=== PATIENT | female | born 1935 | race Caucasian/White ===

== ENCOUNTER 2017-11-28 09:46 | Emergency (ER) | payer MEDICARE, OTHER ==
[~2017-11-28] VITALS: Ht 162.6 cm; Wt 52.2 kg
[~2017-11-28 09:46] MED LIST: ACYCLOVIR800 MG PEG; TRANSDERM-SCOP1 EACH TD
[2017-11-28] MEDS ORDERED: ASPIRIN 81 MG CHEW TAB PO ONE (10:30)
[2017-11-28 12:35] LABS: BASOPHILS # (AUTO) 0.1 (0.0-0.1); HEMATOCRIT 39.8 % (34.2-44.1); HEMOGLOBIN 13.7 g/dL (12.0-16.0); LYMPHOCYTES # (AUTO) 0.3 (1.0-3.2); LYMPHOCYTES % 4.4 % (18.0-39.1); MEAN CORPUSCULAR HEMOGLOBIN 31.1 pg (28-32); MEAN CORPUSCULAR HGB CONC 34.4 g/dL (31-35); MEAN CORPUSCULAR VOLUME 90.5 fL (81-99); MONOCYTES # (AUTO) 0.2 (0.2-0.8); MONOCYTES % 2.3 % (4.4-11.3); NEUTROPHILS # (AUTO) 6.3 (2.1-6.9); NEUTROPHILS % 90.7 % (38.7-80.0); PLATELET COUNT 173 x10e3/uL (140-360); RED CELL DISTRIBUTION WIDTH 12.2 % (11.7-14.4)
[2017-11-28 12:36] LABS: COLOR,URINE YELLOW (YELLOW)
[2017-11-28 12:37] LABS: CLARITY,URINE CLEAR (CLEAR); LEUKOCYTE ESTERASE ,URINE NEGATIVE (NEGATIVE); NITRITE,URINE NEGATIVE (NEGATIVE); PROTEIN,URINE DIPSTICK NEGATIVE (NEGATIVE)
[2017-11-28 12:38] LABS: BILIRUBIN,URINE NEGATIVE (NEGATIVE); KETONES,URINE NEGATIVE (NEGATIVE); URINE UROBILINOGEN 1 mg/dL (0.2 - 1)
[2017-11-28 12:47] LABS: BACTERIA,URINE MODERATE /HPF; MUCUS,URINE MODERATE (RARE); WBC,URINE (MAN) 0-5 /HPF (0-5)
[2017-11-28 12:48] LABS: INR 0.93; PROTHROMBIN TIME 13.3 seconds (11.9-14.5)
[2017-11-28 12:49] LABS: PARTIAL THROMBOPLASTIN TIME 20.9 seconds (23.8-35.5)
[2017-11-28 12:52] LABS: ALANINE AMINOTRANSFERASE 22 IU/L (0-55); ALBUMIN 3.5 g/dL (3.5-5.0); ALKALINE PHOSPHATASE 65 IU/L (40-150); ANION GAP 16.6 mmol/L (8-16); BLOOD UREA NITROGEN 27 mg/dL (7-26); BUN/CREATININE RATIO 39 (6-25); CALCIUM 9.7 mg/dL (8.4-10.2); CARBON DIOXIDE 26 mmol/L (22-29); CHLORIDE 97 mmol/L (98-107); CREATINE KINASE 27 IU/L (29-168); EST GLOMERULAR FILTRATION RATE > 60 ML/MIN (60-); GLUCOSE 145 mg/dL (74-118); LIPASE 57 U/L (8-78); POTASSIUM 4.6 mmol/L (3.5-5.1); SODIUM 135 mmol/L (136-145)
[2017-11-28 14:14] VITALS: BP 135/61
--- OUTSIDE RECORDS SUMMARY | 2017-11-28 14:43 | XMS REPORT | Continuity of Care Document ---
Author Author [facility] Interface Address Unknown Phone Unavailable Problems Problem Status Onset Date Classification Date Reported Comments Source FNA LEFT NECK MASS Active 06/21/2017 [facility] Medications Medication Details Route Status Patient Instructions Ordering Provider Order Date Source Allergies, Adverse Reactions, Alerts Substance Category Reaction Severity Reaction type Status Date Reported Comments Source Immunizations Immunization Date Given Site Status Last Updated Comments Source Results Order Name Results Value Reference Range Date Interpretation Comments Source Biopsy with ultrasound guidance VR Biopsy with ultrasound guidance VR FNA LEFT NECK MASS: HISTORY: Left neck swelling with hoarseness. The patient states she has a history of neck mass for approximately 10 years which has come and gone, but now has increased again. She also has a smaller right neck mass which is relatively new. Per the patient, surgical biopsy of the left neck mass has been done in the past and FNA of the right neck mass has also been done. There are no current imaging studies available. Her recent studies have been done at another facility which is no longer operational. PROCEDURE: The procedure was done using ultrasound guidance, sterile technique and local anesthetic. Preliminary ultrasound shows an ill-defined multilobular heterogeneous mass in the deep to the sternocleidomastoid muscle. 5 passes were then done into the mass with 25-gauge hypodermic needles and the material obtained placed on slides and spray fixed, with needle washings placed into CytoLyt and RPMI. The patient tolerated the procedure well without immediate complications, and was discharged from [facility] in stable condition. [id number] 06/30/2017 - - Read by: Sahil Lopez MD Dictated Date/time: 06/30/17 14:10 Electronically Signed by: Sahil Lopez MD 06/30/17 14:36 FINAL REPORT Venita Vital Signs Vital Sign Value Date Comments Source Encounters Location Location Details Encounter Type Encounter Number Reason For Visit Attending Provider ADM Date DC Date Status Source [facility] [id number] Nitesh Motley 11/29/2013 11/30/2013 AND[place] [facility] [id number] Martin Padron 04/23/2014 04/24/[address] [facility] [id number] Jhoana Lambert 06/30/2017 07/01/2017 [facility] Procedures Procedure Code Date Perfomer Comments Source
== END 2017-11-28 14:10 | disposition home or self-care (01) ==
LOC: ER 09:46
DX: Z03.89 Encounter for observation for other suspected diseases and conditions ruled out (principal); I10 Essential (primary) hypertension; Z85.818 Personal history of malignant neoplasm of other sites of lip, oral cavity, and pharynx
CPT/HCPCS: 36415; 80053; 81001; 82550; 82553; 83690; 84484; 85025; 85610; 85730; 93005; 99283